=== PATIENT | female | born 1980 | race Hispanic/Latino ===

== ENCOUNTER 2020-03-08 12:00 | Emergency (ER) | payer BC ==
[2020-03-08] MEDS ORDERED: TETANUS/DIPHTHERIA TOXOID [ADULT] 0.5 ML VIAL IM ONE (12:19)
== END 2020-03-08 12:32 | disposition home or self-care (01) ==
LOC: EDH 12:00
DX: S41.152A Open bite of left upper arm, initial encounter (principal); W54.0XXA Bitten by dog, initial encounter; Y93.89 Activity, other specified; Y92.098 Other place in other non-institutional residence as the place of occurrence of the external cause; Y99.8 Other external cause status
CPT/HCPCS: 90471; 90714